=== PATIENT | male | born 1975 | race American Indian/Alaskan Native ===

== ENCOUNTER 2023-10-23 04:30 | Emergency (ER) | payer OTHER ==
[~2023-10-23] VITALS: Ht 172.7 cm; Wt 86.7 kg
[2023-10-23] MEDS ORDERED: LORazepam 2 MG/ML VIAL IV ONE (04:45)
[2023-10-23] MEDS ORDERED: LACTATED RINGER'S 1,000 ML IV ONE ×3 (04:45→05:45)
[2023-10-23 04:51] LABS: HEMOGLOBIN 15.4 g/dL (12.0-18.0); RBC 5.14 M/ul (4.3-5.7)
[2023-10-23 04:53] LABS: BASOPHILS 0.8 % (0-2); EOSINOPHILS 1.5 % (0-6); HEMATOCRIT 46.2 % (35.0-50.0); LYMPHOCYTES 18.4 % (24-44); MCHC 33.4 g/dl (30-36); MCV 89.8 fl (81-99); MONOCYTES 8.2 % (0-12); NEUTROPHILS 71.1 % (39-80); PLATELET COUNT 206 K/uL (140-440); RDW 16.3 (10.5-15.0)
[2023-10-23 05:17] LABS: ALBUMIN 3.4 g/dL (3.4-5.0); ALBUMIN/GLOBULIN RATIO 0.87 (1.1-2.4); ANION GAP 15.4 (7-21); BILIRUBIN, TOTAL 0.5 ng/dL (0.2-1.0); BUN/CREATININE RATIO 13.48 (6.0-28.6); CALCIUM 7.2 mg/dL (8.5-10.1); CREATININE, SERUM 0.89 mg/dL (0.70-1.30); POTASSIUM 3.4 mmol/L (3.5-5.1); PROTEIN, TOTAL 7.3 g/dL (6.4-8.2)
[2023-10-23 07:21] LABS: ANION GAP 14.2 (7-21); BUN/CREATININE RATIO 14.28 (6.0-28.6); CALCIUM 7.2 mg/dL (8.5-10.1); CREATININE, SERUM 0.7 mg/dL (0.70-1.30); POTASSIUM 3.2 mmol/L (3.5-5.1)
[2023-10-23 07:36] VITALS: BP 128/78
--- NOTE | 2023-10-26 07:23 | EKG ---
[facility] [address] [place] [address] Signed Normal sinus rhythm Normal ECG No previous ECGs available Confirmed by Natasha Lamb MD ([id number]) on 10/26/2023 7:23:55 AM Electronically Signed By: NATASHA LAMB 10/26/23722 PATIENT NAME: JANINE GONZALEZ Electrocardiogram DATE OF : 73 PHYSICIAN: NATASHA LAMB REPORT #: [id number] REPORT IS CONFIDENTIAL AND NOT TO BE RELEASED WITHOUT AUTHORIZATION
== END 2023-10-23 07:38 | disposition home or self-care (01) ==
LOC: ED 04:30
PROVIDERS: Family Medicine
DX: F15.10 Other stimulant abuse, uncomplicated (principal); R74.8 Abnormal levels of other serum enzymes
CPT/HCPCS: 36415; 71045; 80048; 80053; 80307; 82553; 84484; 85025; 93005; 93010; 96374; 99284-25; J2060; J7121